=== PATIENT | male | born 2000 | race Caucasian/White ===

== ENCOUNTER 2022-08-04 21:13 | Emergency (ER) | payer BC ==
[2022-08-04] MEDS ORDERED: Dexamethasone 10 MG/ML VIAL ONE (22:38)
[2022-08-04] MEDS ORDERED: Ketorolac Tromethamine 30 MG/ML VIAL ONE (22:38)
[2022-08-04 22:41] LABS: MONO NEGATIVE CONTROL ZONE White (Negative) (White); MONO POSITIVE CONTROL Pink Line (Positive) (PINK/RED); Mononucleosis NEGATIVE (NEGATIVE)
[2022-08-04 23:19] LABS: SARS-CoV-2 NAA Rapid Test Not Detected (NotDetected)
== END 2022-08-04 23:51 | disposition home or self-care (01) ==
LOC: CSHERS 21:13
DX: J03.90 Acute tonsillitis, unspecified (principal); H92.01 Otalgia, right ear
CPT/HCPCS: 36415; 86308; 87081; 87430; 96372; 99283; J1100; J1885